=== PATIENT | male | born 1935 | race Caucasian/White ===

== ENCOUNTER 2016-06-02 15:12 | Outpatient (CLI) | payer MEDICARE, OTHER | END 2016-06-02 15:13 | disposition home or self-care (01) | DX: E11.9 Type 2 diabetes mellitus without complications (principal); I10 Essential (primary) hypertension ==

== ENCOUNTER 2016-07-24 08:06 | Outpatient (CLI) | payer MEDICARE, OTHER | END 2016-07-24 08:07 | disposition home or self-care (01) | DX: E11.9 Type 2 diabetes mellitus without complications (principal); I10 Essential (primary) hypertension; E78.5 Hyperlipidemia, unspecified ==

== ENCOUNTER 2016-10-29 08:57 | Outpatient (CLI) | payer MEDICARE, OTHER | END 2016-10-29 08:58 | disposition home or self-care (01) | LOC: SC 08:57 | PROVIDERS: ATTEND Nurse Practitioner Family | DX: G47.33 Obstructive sleep apnea (adult) (pediatric) (principal) | CPT/HCPCS: 99214; G0463; 99212 ==

== ENCOUNTER 2017-08-12 07:12 | Outpatient (CLI) | payer MEDICARE, OTHER ==
[2017-08-12 13:35] LABS: ALBUMIN/GLOBULIN RATIO 1.5 (1.0-2.2); ALKALINE PHOSPHATASE 73 IU/L (42-121); ALT ALANINE AMINOTRANSFERASE 22 IU/L (10-60); AST ASPARTATE AMINOTRANSFERASE 22 IU/L (10-42); BILIRUBIN,TOTAL 1.1 mg/dL (0.2-1.0); BUN - BLOOD UREA NITROGEN 21 mg/dL (6-20); CALCIUM 8.9 mg/dL (8.5-10.3); CARBON DIOXIDE - CO2 29 mmol/L (21-32); CHLORIDE 103 mmol/L (101-111); CHOL/HDL RATIO 3.9 (<5.0); CHOLESTEROL 174 mg/dL; CREATININE 0.8 mg/dL (0.6-1.2); GFR - MDRD 93 (>89); GLUCOSE 123 mg/dL (70-100); HDL CHOLESTEROL 45 mg/dL; LDL CHOLESTEROL,CALCULATED 120 mg/dL; LDL/HDL RATIO 2.7 (<3.6); SODIUM 137 mmol/L (135-145); TOTAL PROTEIN 6.6 g/dL (6.7-8.2); VLDL CHOLESTEROL 9 mg/dL
[2017-08-12 13:36] LABS: HB2 TOTAL 15.6 g/dL; HEMOGLOBIN A1C 0.68 g/dL; HEMOGLOBIN A1C % 6.1 % (4.6-6.2)
== END 2017-08-12 07:13 | disposition home or self-care (01) ==
LOC: LAB.WCP 07:12
PROVIDERS: ATTEND Family Medicine
DX: E11.9 Type 2 diabetes mellitus without complications (principal); I10 Essential (primary) hypertension; E78.5 Hyperlipidemia, unspecified
CPT/HCPCS: 36415; 80053; 80061; 82043; 83036; 83721; 84443

== ENCOUNTER 2017-09-09 09:17 | Outpatient (CLI) | payer MEDICARE, OTHER | END 2017-09-09 09:18 | disposition home or self-care (01) | LOC: SC 09:17 | PROVIDERS: ATTEND Nurse Practitioner Family | DX: G47.33 Obstructive sleep apnea (adult) (pediatric) (principal); I10 Essential (primary) hypertension | CPT/HCPCS: 99214; G0463; 99212 ==

== ENCOUNTER 2018-02-23 07:07 | Outpatient (CLI) | payer MEDICARE, OTHER ==
[2018-02-23 13:08] LABS: HB2 TOTAL 15.6 g/dL; HEMOGLOBIN A1C 0.71 g/dL; HEMOGLOBIN A1C % 6.3 % (4.6-6.2)
[2018-02-23 13:12] LABS: ALBUMIN 4.3 g/dL (3.2-5.5); ALBUMIN/GLOBULIN RATIO 1.6 (1.0-2.2); BILIRUBIN,TOTAL 1.7 mg/dL (0.2-1.0); CALCIUM 9.2 mg/dL (8.5-10.3); CREATININE 0.9 mg/dL (0.6-1.2)
== END 2018-02-23 23:59 | disposition home or self-care (01) ==
LOC: LAB.WCP 07:07
PROVIDERS: ATTEND Family Medicine
DX: E11.9 Type 2 diabetes mellitus without complications (principal); E78.5 Hyperlipidemia, unspecified; I10 Essential (primary) hypertension
CPT/HCPCS: 36415; 80053; 83036

== ENCOUNTER 2018-05-20 07:21 | Outpatient (CLI) | payer MEDICARE, OTHER ==
[2018-05-20 13:35] LABS: BASOPHILS % (AUTO) 0.6 %; EOSINOPHILS # (AUTO) 0.1 10^3/uL (0.0-0.7); EOSINOPHILS % (AUTO) 1.8 %; HGB - HEMOGLOBIN 14.2 g/dL (14.0-18.0); LYMPHOCYTES # (AUTO) 0.8 10^3/uL (1.5-3.5); LYMPHOCYTES % (AUTO) 20.2 %; MEAN CORPUSCULAR HEMOGLOBIN 31.4 pg (27.0-31.0); MEAN CORPUSCULAR HGB CONC 33.9 g/dL (32.0-36.0); MEAN CORPUSCULAR VOLUME 92.5 fL (80.0-94.0); MEAN PLATELET VOLUME 8.5 fL (7.4-11.4); MONOCYTES # (AUTO) 0.4 10^3/uL (0.0-1.0); MONOCYTES % (AUTO) 9.6 %; NEUTROPHILS # (AUTO) 2.7 10^3/uL (1.5-6.6); NEUTROPHILS % (AUTO) 67.8 %; PLT - PLATELET COUNT 119 10^3/uL (130-450); RED BLOOD COUNT 4.54 10^6/uL (4.70-6.10); RED CELL DISTRIBUTION WIDTH 14.5 % (12.0-15.0); WHITE BLOOD COUNT 3.9 x10^3/uL (4.8-10.8)
[2018-05-20 14:08] LABS: ALBUMIN 4.3 g/dL (3.2-5.5); ALBUMIN/GLOBULIN RATIO 1.5 (1.0-2.2); ALKALINE PHOSPHATASE 84 IU/L (42-121); ALT ALANINE AMINOTRANSFERASE 32 IU/L (10-60); AST ASPARTATE AMINOTRANSFERASE 28 IU/L (10-42); BILIRUBIN,TOTAL 1.6 mg/dL (0.2-1.0); BUN - BLOOD UREA NITROGEN 21 mg/dL (6-20); CALCIUM 9.3 mg/dL (8.5-10.3); CARBON DIOXIDE - CO2 31 mmol/L (21-32); CHLORIDE 104 mmol/L (101-111); CHOL/HDL RATIO 2.5 (<5.0); CHOLESTEROL 123 mg/dL; CREATININE 0.9 mg/dL (0.6-1.2); GFR - MDRD 81 (>89); GLUCOSE 120 mg/dL (70-100); HDL CHOLESTEROL 50 mg/dL; LDL CHOLESTEROL,CALCULATED 65 mg/dL; LDL/HDL RATIO 1.3 (<3.6); SODIUM 142 mmol/L (135-145); TOTAL PROTEIN 7.1 g/dL (6.7-8.2); VLDL CHOLESTEROL 8 mg/dL
[2018-05-20 14:14] LABS: HB2 TOTAL 15.3 g/dL; HEMOGLOBIN A1C 0.64 g/dL
== END 2018-05-20 07:22 | disposition home or self-care (01) ==
LOC: LAB.WCP 07:21
PROVIDERS: ATTEND Family Medicine
DX: I10 Essential (primary) hypertension (principal); E11.9 Type 2 diabetes mellitus without complications; C09.1 Malignant neoplasm of tonsillar pillar (anterior) (posterior); D35.2 Benign neoplasm of pituitary gland
CPT/HCPCS: 36415; 80053; 80061; 83036; 83721; 84443; 85025

== ENCOUNTER 2018-10-19 09:58 | Outpatient (CLI) | payer MEDICARE, OTHER | END 2018-10-19 09:59 | disposition home or self-care (01) | LOC: SC 09:58 | PROVIDERS: ATTEND Nurse Practitioner Family | DX: G47.33 Obstructive sleep apnea (adult) (pediatric) (principal) | CPT/HCPCS: 99214; G0463; 99212 ==

== ENCOUNTER 2018-11-11 | Outpatient (CLI) | payer MEDICARE, OTHER | END 2018-11-11 23:59 | disposition home or self-care (01) ==

== ENCOUNTER 2018-12-21 11:25 | Day surgery (SDC) | payer MEDICARE, OTHER ==
[2018-12-21] MEDS ORDERED: fentaNYL 250 MCG/5 ML VIAL IVP ONE (11:26)
[2018-12-21] MEDS ORDERED: MIDAZOLAM 2 MG/2 ML VIAL IVP ONE (11:26)
[2018-12-21] MEDS ORDERED: LACTATED RINGERS 1,000 ML IV ONE (11:35)
[2018-12-21 14:11] VITALS: BP 149/80
== END 2018-12-21 11:26 | disposition home or self-care (01) ==
LOC: SDS 11:25
PROVIDERS: ATTEND Surgery
PROC: 0DBL8ZZ Excision of Transverse Colon, Via Natural or Artificial Opening Endoscopic (ICD-10-PCS; 2018-12-21)
PROC: 0DBN8ZZ Excision of Sigmoid Colon, Via Natural or Artificial Opening Endoscopic (ICD-10-PCS; principal; 2018-12-21 13:00)
DX: Z12.11 Encounter for screening for malignant neoplasm of colon (principal); D12.3 Benign neoplasm of transverse colon; K63.5 Polyp of colon; I10 Essential (primary) hypertension; E11.9 Type 2 diabetes mellitus without complications; E78.00 Pure hypercholesterolemia, unspecified; G47.33 Obstructive sleep apnea (adult) (pediatric)
CPT/HCPCS: 45380; J3010; J7120

== ENCOUNTER 2019-03-02 07:00 | Outpatient (CLI) | payer MEDICARE, OTHER ==
[2019-03-02 13:17] LABS: ALBUMIN 4.1 g/dL (3.2-5.5); ALBUMIN/GLOBULIN RATIO 1.2 (1.0-2.2); CALCIUM 9.5 mg/dL (8.5-10.3); CREATININE 0.9 mg/dL (0.6-1.2); TOTAL PROTEIN 7.4 g/dL (6.7-8.2)
[2019-03-02 13:29] LABS: THYROID STIMULATING HORMONE 1.99 uIU/mL (0.34-5.60)
[2019-03-02 13:31] LABS: FREE T4 (FREE THYROXINE) 0.96 ng/dL (0.58-1.64)
[2019-03-02 13:32] LABS: HEMOGLOBIN A1C 0.71 g/dL; HEMOGLOBIN A1C % 6.5 % (4.6-6.2)
[2019-03-02 13:58] LABS: LUTEINIZING HORMONE 4.13 mIU/mL
== END 2019-03-02 23:59 | disposition home or self-care (01) ==
LOC: LAB.WCP 07:00
PROVIDERS: ATTEND Family Medicine
DX: D35.2 Benign neoplasm of pituitary gland (principal); E11.9 Type 2 diabetes mellitus without complications
CPT/HCPCS: 36415; 80053; 81599; 83002; 83036; 84305; 84402; 84403; 84439; 84443

== ENCOUNTER 2019-05-26 07:10 | Outpatient (CLI) | payer MEDICARE, OTHER ==
[2019-05-26 13:26] LABS: BASOPHILS % (AUTO) 0.5 %; EOSINOPHILS # (AUTO) 0.1 10^3/uL (0.0-0.7); EOSINOPHILS % (AUTO) 1.6 %; HGB - HEMOGLOBIN 14.3 g/dL (14.0-18.0); LYMPHOCYTES # (AUTO) 0.9 10^3/uL (1.5-3.5); LYMPHOCYTES % (AUTO) 23.8 %; MEAN CORPUSCULAR HEMOGLOBIN 31.6 pg (27.0-31.0); MEAN CORPUSCULAR HGB CONC 33.2 g/dL (32.0-36.0); MEAN CORPUSCULAR VOLUME 95.1 fL (80.0-94.0); MEAN PLATELET VOLUME 10.8 fL (7.4-11.4); MONOCYTES # (AUTO) 0.4 10^3/uL (0.0-1.0); MONOCYTES % (AUTO) 9.6 %; NEUTROPHILS # (AUTO) 2.5 10^3/uL (1.5-6.6); NEUTROPHILS % (AUTO) 64.2 %; PLT - PLATELET COUNT 131 10^3/uL (130-450); RED BLOOD COUNT 4.53 10^6/uL (4.70-6.10); WHITE BLOOD COUNT 3.9 x10^3/uL (4.8-10.8)
[2019-05-26 13:54] LABS: CREATININE,URINE 84.3 mg/dL
[2019-05-26 13:58] LABS: MICROALBUMIN,URINE < 0.2 mg/dL (0-300.0)
[2019-05-26 13:59] LABS: HB2 TOTAL 14.5 g/dL; HEMOGLOBIN A1C 0.69 g/dL; HEMOGLOBIN A1C % 6.5 % (4.6-6.2)
[2019-05-26 14:00] LABS: ALBUMIN 4.2 g/dL (3.2-5.5); ALBUMIN/GLOBULIN RATIO 1.6 (1.0-2.2); ALKALINE PHOSPHATASE 56 IU/L (42-121); ALT ALANINE AMINOTRANSFERASE 24 IU/L (10-60); AST ASPARTATE AMINOTRANSFERASE 25 IU/L (10-42); BILIRUBIN,TOTAL 1.4 mg/dL (0.2-1.0); BUN - BLOOD UREA NITROGEN 28 mg/dL (6-20); CALCIUM 9.1 mg/dL (8.5-10.3); CARBON DIOXIDE - CO2 29 mmol/L (21-32); CHLORIDE 102 mmol/L (101-111); CHOL/HDL RATIO 2.6 (<5.0); CHOLESTEROL 128 mg/dL; GFR - MDRD 72 (>89); GLUCOSE 134 mg/dL (70-100); HDL CHOLESTEROL 50 mg/dL; SODIUM 139 mmol/L (135-145); TOTAL PROTEIN 6.9 g/dL (6.7-8.2)
== END 2019-05-26 23:59 | disposition home or self-care (01) ==
LOC: LAB.WCP 07:10
PROVIDERS: ATTEND Family Medicine
DX: D35.2 Benign neoplasm of pituitary gland (principal); E78.5 Hyperlipidemia, unspecified; E11.620 Type 2 diabetes mellitus with diabetic dermatitis; I10 Essential (primary) hypertension
CPT/HCPCS: 36415; 80053; 80061; 82043; 82570; 83036; 83721; 84443; 85025

== ENCOUNTER 2019-08-23 10:21 | Outpatient (CLI) | payer MEDICARE, OTHER ==
[2019-08-23 12:59] LABS: CREATININE,URINE 33.9 mg/dL; MICROALBUM/CREATININE RATIO,UR 5.9 ug/mg (<30.0); MICROALBUMIN,URINE 0.2 mg/dL (0-300.0)
[2019-08-23 13:12] LABS: CALCIUM 9.2 mg/dL (8.5-10.3); CREATININE 0.9 mg/dL (0.6-1.2)
[2019-08-23 13:19] LABS: HB2 TOTAL 14.9 g/dL; HEMOGLOBIN A1C 0.65 g/dL; HEMOGLOBIN A1C % 6.1 % (4.6-6.2)
== END 2019-08-23 23:59 | disposition home or self-care (01) ==
LOC: LAB.WCP 10:21
PROVIDERS: ATTEND Family Medicine
DX: E11.9 Type 2 diabetes mellitus without complications (principal)
CPT/HCPCS: 36415; 80048; 82043; 82570; 83036

== ENCOUNTER 2020-01-09 08:00 | Outpatient (CLI) | payer MEDICARE, OTHER ==
[2020-01-09 13:44] LABS: ALBUMIN 4.4 g/dL (3.2-5.5); ALBUMIN/GLOBULIN RATIO 1.5 (1.0-2.2); BILIRUBIN,TOTAL 1.6 mg/dL (0.2-1.0); CALCIUM 9.4 mg/dL (8.5-10.3); TOTAL PROTEIN 7.3 g/dL (6.7-8.2)
[2020-01-09 13:45] LABS: HEMOGLOBIN A1c% 6.4 % (4.27-6.07)
== END 2020-01-09 23:59 | disposition home or self-care (01) ==
LOC: LAB.WCP 08:00
PROVIDERS: ATTEND Family Medicine
DX: E78.5 Hyperlipidemia, unspecified (principal); I10 Essential (primary) hypertension; E11.9 Type 2 diabetes mellitus without complications
CPT/HCPCS: 36415; 80053; 82043; 82570; 83036

== ENCOUNTER → 2020-04-19 | Outpatient (CLI) | payer MEDICARE, OTHER ==
--- NOTE | 2020-04-19 11:44 | XRAY Report ---
PROCEDURE: Shoulder 3 View LT INDICATIONS: LEFT SHOULDER IMPINGEMENT SYNDROME TECHNIQUE: 3 views of the shoulder were acquired. COMPARISON: None. FINDINGS: Bones: No fractures or dislocations. No suspicious bony lesions. Visualized ribs appear intact. Soft tissues: No suspicious soft tissue calcifications. IMPRESSION: Moderately severe AC joint and moderate glenohumeral joint degenerative osteoarthritis, no trauma found. Reviewed by: Adolph Coronel MD on 04/19/2020 11:43 AM [facility] Approved by: Adolph Coronel MD on 04/19/2020 11:43 AM PST Station ID: [id number]
--- OUTSIDE RECORDS SUMMARY | 2020-04-24 09:59 | EXTERNAL MEDICAL SUMMARY RPT | Continuity of Care Document ---
:1935 Demographics Phone Unavailable Preferred Language South [place] Marital Status Unknown Caodaism Affiliation Unknown Race Unknown Ethnic Group Unknown Author Organization [facility] Address [address] [phone] Phone Care Team Providers Name Role Phone HERACLIO Unavailable Unavailable [facility]ly [facility], [facility] Unavailable Unavailable Problems date description facility 2020-01-30 09:15 STRAIN OF MUSC/FASC/TEND LONG [facility] HEAD OF BICEPS, UNSP ARM, INIT 2020-02-08 14:30 STRAIN OF MUSC/FASC/TEND LONG [facility] HEAD OF BICEPS, UNSP ARM, INIT 2020-02-08 14:30 STRAIN OF MUSC/FASC/TEND LONG [facility] HEAD OF BICEPS, UNSP ARM, SUBS 2020-04-18 00:00:00 Other affections of shoulder [facility], not elsewhere [facility] classified 2020-04-18 00:00:00 SHOULDER COMPLETE 3 VIEW [facility] 2020-04-18 00:00:00 Impingement syndrome of left [place] [facility] shoulder [facility] 2020-04-18 00:00:00 Health-related behavior [facility] 2020-04-18 00:00:00 Tobacco use and exposure [facility] 2020-04-18 00:00:00 Impingement syndrome of [facility] shoulder region [facility] 2020-04-18 00:00:00 Exercise [facility] 2020-04-18 00:00:00 Details of drug misuse [facility] Primary [facility] behavior [facility] 2020-04-18 00:00:00 [facility] 2020-04-18 00:00:00 Tobacco smoking status [facility] 2020-04-18 00:00:00 Total score? [facility] 2020-04-18 00:00:00 Former smoker [facility] Allergies date description facility NO KNOWN ENVIRONMENTAL ALLERGIES [facility] Penicillins [facility] AMOXICILLIN [facility] NO KNOWN ALLERGIES [facility] MORPHINE [facility] Social History date description facility 2020-04-18 00:00:00 Former smoker [facility] Social History date description facility 2020-04-18 00:00:00 Former smoker [facility] date description facility [id number]
== END ==
LOC: DI.WCP 08:27
PROVIDERS: ATTEND Physician Assistant Medical
DX: M75.42 Impingement syndrome of left shoulder (principal); M19.012 Primary osteoarthritis, left shoulder

== ENCOUNTER 2020-07-05 09:42 | Outpatient (CLI) | payer MEDICARE, OTHER ==
[2020-07-05 12:28] LABS: BASOPHILS % (AUTO) 0.5 %; EOSINOPHILS # (AUTO) 0.1 10^3/uL (0.0-0.7); EOSINOPHILS % (AUTO) 0.9 %; HCT - HEMATOCRIT 45.9 % (42.0-52.0); LYMPHOCYTES % (AUTO) 17.6 %; MEAN CORPUSCULAR HEMOGLOBIN 30.7 pg (27.0-31.0); MEAN CORPUSCULAR HGB CONC 32.7 g/dL (32.0-36.0); MEAN CORPUSCULAR VOLUME 94.1 fL (80.0-94.0); MEAN PLATELET VOLUME 10.2 fL (7.4-11.4); MONOCYTES # (AUTO) 0.5 10^3/uL (0.0-1.0); MONOCYTES % (AUTO) 8.3 %; NEUTROPHILS % (AUTO) 72.3 %; PLT - PLATELET COUNT 156 10^3/uL (130-450); RED BLOOD COUNT 4.88 10^6/uL (4.70-6.10); RED CELL DISTRIBUTION WIDTH 13.4 % (12.0-15.0); WHITE BLOOD COUNT 5.6 x10^3/uL (4.8-10.8)
[2020-07-05 12:48] LABS: ALBUMIN 4.5 g/dL (3.2-5.5); ALBUMIN/GLOBULIN RATIO 1.5 (1.0-2.2); ALKALINE PHOSPHATASE 66 IU/L (42-121); ALT ALANINE AMINOTRANSFERASE 23 IU/L (10-60); AST ASPARTATE AMINOTRANSFERASE 28 IU/L (10-42); BILIRUBIN,TOTAL 1.4 mg/dL (0.2-1.0); BUN - BLOOD UREA NITROGEN 17 mg/dL (6-20); CALCIUM 9.4 mg/dL (8.5-10.3); CARBON DIOXIDE - CO2 31 mmol/L (21-32); CHLORIDE 98 mmol/L (101-111); CHOL/HDL RATIO 2.7 (<5.0); CHOLESTEROL 145 mg/dL; GFR - MDRD 71 (>89); GLUCOSE 132 mg/dL (70-100); HDL CHOLESTEROL 53 mg/dL; LDL CHOLESTEROL,CALCULATED 84 mg/dL; LDL/HDL RATIO 1.6 (<3.6); POTASSIUM 3.5 mmol/L (3.5-5.0); SODIUM 137 mmol/L (135-145); TOTAL PROTEIN 7.5 g/dL (6.7-8.2); TRIGLYCERIDES 41 mg/dL; VLDL CHOLESTEROL 8 mg/dL
[2020-07-05 12:49] LABS: ESTIMATED AVERAGE GLUCOSE 140 mg/dL (70-100); HEMOGLOBIN A1c% 6.5 % (4.27-6.07)
[2020-07-05 12:56] LABS: THYROID STIMULATING HORMONE 1.81 uIU/mL (0.34-5.60)
[2020-07-05 18:23] LABS: CREATININE,URINE 25.3 mg/dL; MICROALBUM/CREATININE RATIO,UR 7.9 ug/mg (<30.0); MICROALBUMIN,URINE 0.2 mg/dL (0-300.0)
== END 2020-07-05 09:43 | disposition home or self-care (01) ==
LOC: LAB.N 09:42
PROVIDERS: ATTEND Physician Assistant Medical
DX: I10 Essential (primary) hypertension (principal); E78.5 Hyperlipidemia, unspecified; E11.9 Type 2 diabetes mellitus without complications
CPT/HCPCS: 36415; 80053; 80061; 82043; 82570; 83036; 83721; 84443; 85025

== ENCOUNTER 2020-11-12 08:00 | Outpatient (CLI) | payer MEDICARE, OTHER ==
[2020-11-12 13:20] LABS: CALCIUM 9.5 mg/dL (8.5-10.3); CREATININE 0.8 mg/dL (0.6-1.2); POTASSIUM 3.8 mmol/L (3.5-5.0)
[2020-11-12 13:43] LABS: ESTIMATED AVERAGE GLUCOSE 140 mg/dL (70-100); HEMOGLOBIN A1c% 6.5 % (4.27-6.07)
== END 2020-11-12 23:59 | disposition home or self-care (01) ==
LOC: LAB.WCP 08:00
PROVIDERS: ATTEND Physician Assistant Medical
DX: E11.9 Type 2 diabetes mellitus without complications (principal)
CPT/HCPCS: 36415; 80048; 83036

== ENCOUNTER 2020-11-23 10:47 | Outpatient (CLI) | payer MEDICARE, OTHER ==
[2020-11-23] MEDS ORDERED: IOPAMIDOL-300 100 ML VIAL IVP ONE (11:40)
--- NOTE | 2020-11-23 12:45 | CT Report ---
PROCEDURE: SOFT TISSUE NECK W INDICATIONS: 85-year-old male with sore throat, left-sided lump, history of left tonsillar carcinoma CONTRAST: IV CONTRAST: Isovue 300 ml: 100 PO CONTRAST: *NO PO CONTRAST TECHNIQUE: After the administration of intravenous contrast, 3.0 mm axial sections acquired from the sella to th e aortic arch. Additional oblique axial 3.0 mm sections acquired through the pharynx. 3 mm thick co wei reformats were generated. For radiation dose reduction, the following was used: automated exp osure control, adjustment of mA and/or kV according to patient size. COMPARISON: 01/17/2016 FINDINGS: Image quality: Excellent. Vessels: Visualized vasculature appears patent. Vascular calcification the right proximal ICA results in greater than 70% stenosis, similar the prior . Neck spaces: There remains soft tissue fullness in the left tonsillar fossa measuring at least 1.8 x 1.4 cm. Additionally, there is a new mass lesion measuring 2.8 x 2.5 x 2.5 cm in the posterior left lateral nasopharynx obliterating the fossa of Rosenmuller and involving the longus coli muscle. This may reflect a new lateral retropharyngeal layne involvement (node of Rouviere). No osseous erosion. There is been a left neck dissection. Otherwise, the vocal cords, false vocal cords, pyriform sinuses , epiglottis, vallecula, and tongue base all appear normal. Glands: The parotid glands appear normal. The thyroid is normal in size and there are no incidental findings. Miscellaneous: Visualized brain and orbits appear normal. Lung apices appear clear. Superficial so ft tissues appear normal. Bilateral intraocular lens replacements noted. Bones: No suspicious bony lesions. Visualized sinuses and mastoids appear unremarkable. Degenerati ve cervical spine noted with large posterior osteophyte at C6-7 resulting in severe central stenosis, similar prior exam IMPRESSION: 1. 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 Fullness in the left tonsillar fossa may reflect scarring or recurrent local disease. 3. 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 Atherosclerotic right proximal ICA greater than 70% stenosis Reviewed by: Reynold Elizabeth MD on 11/23/2020 11:43 AM [facility] Approved by: Reynold Elizabeth MD on 11/23/2020 11:43 AM [facility] Station ID: [id number]
== END 2020-11-23 10:48 | disposition home or self-care (01) ==
LOC: DI 10:47
PROVIDERS: ATTEND Physician Assistant Medical
DX: C09.1 Malignant neoplasm of tonsillar pillar (anterior) (posterior) (principal); I65.21 Occlusion and stenosis of right carotid artery; M50.323 Other cervical disc degeneration at C6-C7 level; M48.02 Spinal stenosis, cervical region
CPT/HCPCS: 70491; Q9967

== ENCOUNTER 2021-02-11 08:00 | Outpatient (CLI) | payer MEDICARE, OTHER ==
[2021-02-11 12:16] LABS: ALBUMIN 4.1 g/dL (3.2-5.5); ALBUMIN/GLOBULIN RATIO 1.3 (1.0-2.2); ALKALINE PHOSPHATASE 72 IU/L (42-121); ALT ALANINE AMINOTRANSFERASE 23 IU/L (10-60); AST ASPARTATE AMINOTRANSFERASE 23 IU/L (10-42); BILIRUBIN,TOTAL 1.5 mg/dL (0.2-1.0); BUN - BLOOD UREA NITROGEN 18 mg/dL (6-20); CALCIUM 9.6 mg/dL (8.5-10.3); CARBON DIOXIDE - CO2 33 mmol/L (21-32); CHLORIDE 100 mmol/L (101-111); CHOL/HDL RATIO 2.7 (<5.0); CHOLESTEROL 130 mg/dL; CREATININE 0.9 mg/dL (0.6-1.2); GFR - MDRD 80 (>89); GLUCOSE 135 mg/dL (70-100); HDL CHOLESTEROL 48 mg/dL; POTASSIUM 3.7 mmol/L (3.5-5.0); SODIUM 141 mmol/L (135-145); TOTAL PROTEIN 7.2 g/dL (6.7-8.2); TRIGLYCERIDES 32 mg/dL
[2021-02-11 13:12] LABS: ESTIMATED AVERAGE GLUCOSE 146 mg/dL (70-100); HEMOGLOBIN A1c% 6.7 % (4.27-6.07)
== END 2021-02-11 23:59 | disposition home or self-care (01) ==
LOC: LAB.WCP 08:00
PROVIDERS: ATTEND Physician Assistant Medical
DX: E11.9 Type 2 diabetes mellitus without complications (principal)
CPT/HCPCS: 36415; 80053; 80061; 83036; 83721

== ENCOUNTER 2021-05-09 08:00 | Outpatient (CLI) | payer MEDICARE, OTHER ==
[2021-05-09 12:59] LABS: CALCIUM 9.6 mg/dL (8.5-10.3); CREATININE 0.9 mg/dL (0.6-1.2); POTASSIUM 3.8 mmol/L (3.5-5.0)
[2021-05-09 14:43] LABS: ESTIMATED AVERAGE GLUCOSE 148 mg/dL (70-100); HEMOGLOBIN A1c% 6.8 % (4.27-6.07)
== END 2021-05-09 23:59 | disposition home or self-care (01) ==
LOC: LAB.WCP 08:00
PROVIDERS: ATTEND Physician Assistant Medical
DX: E11.9 Type 2 diabetes mellitus without complications (principal)
CPT/HCPCS: 36415; 80048; 83036

== ENCOUNTER 2021-06-17 13:48 | Outpatient (CLI) | payer MEDICARE, OTHER ==
--- NOTE | 2021-06-17 14:35 | SLEEP CARE CONSULTATION ---
Information from patient questionnaire entered by Keila Up MA. I have reviewed and concur with the information entered by Keila Up MA. This document represents the service I personally performed and the decisions made by , Susan Gray ARNP. History of Present Illness Service Date and Time: 06/17/2021 1348 Previous diagnosis: Moderate, Obstructive Sleep Apnea-Hypopnea Syndrome (Severe supine) AHI: 19.9 ( ) Reason for follow up: annual (LAST SEEN 10/2018,) Equipment type: CPAP Equipment obtained from: [facility] (getting supplies as needed) Mask style: Full face Backup mask available: Yes (old mask) Last cushion change: 1-2 weeks ago Prior sleep studies: Yes Year and Where: 2011 [facility] Type of Sleep Study: Polysomnography HPI additional information: AMBER PANTOJA was diagnosed to have moderate, AHI 19.9, obstructive sleep apnea- hypopnea syndrome and returned today for CPAP therapy annual follow-up. CPAP Compliance Data - Data Reviewed with Patient Average duration of nightly device use: 6 HOURS 17 MINUTES Compliance rate %: 87.5 Current pressure setting (cmH2O): 16-18 Humidity settin Heated hose settin Average residual AHI: 2.1 Average large leak: 46 SECONDS Subjective Missed days of use due to: reports: mask issues, illness, other (VELCRO ON MASK IS COMMING APART,) Patient concerns: reports: mask leak noise, dry mouth, nose, throat. denies: aerophagia, mask discomfort, air blowing in eyes, condensation in mask/hose, nasal congestion, epistaxis Observed to snore while using device: No Current pressure setting perceived as: comfortable On therapy, patient: reports: sleeping better, awakening more refreshed, being more awake and alert during the day, more rested overall. denies: drowsiness while driving Current [place] Sleepiness Scale score: 6 (2021) Allergies and Home Medications Home medication list reviewed: Yes (Keytruda; triamcinolone cream) Allergy and home medication list: Allergies Penicillins Allergy (Intermediate, Verified 12/20/18 13:45) Hives Review of Systems Review of systems same as previous: No (Throat cancer reoccured 6 months ago) Ear/Nose/Throat: reports: dry mouth/throat, other (THROAT CANCER) Physical Exam Vital signs obtained and entered by: RAY CEBALLOS Blood Pressure: 126/74 (RIGHT, PULSE 78, RESP 16,) Cuff size: wrist Heart Rate: 79 O2 Saturation: 97 (PAPER MASK) Height: 5 ft 10 in Weight: 162 lb Body Mass Index: 23.2 BMI Classification: Healthy weight Impression and Plan 1. Obstructive Sleep Apnea-Hypopnea Syndrome, moderate, with good treatment compliance and good apnea control. On CPAP therapy, the patient has better sleep quality and is more rested overall. Patient has a Dreamstation. He states occasionally he will get a "burning smell" from his mask but it is very transitory. He cannot go without his device and continues to use it. He states that 6 months ago his throat cancer came back and he is on Keytruda for this. Patient was encouraged to register their device online with [employer] for the recall to see if their device is affected. If their device is affected they should start a claim. I informed him that he could obtain a portable CPAP machine to use until his machine is replaced. He voiced understanding. Patient voiced understanding and agreement with plan. Patient's apnea severity and rationale for treatment to reduce apnea, improve sleep quality and reduce cardiovascular and cerebrovascular events was reviewed. I also reviewed the benefit of consistent device use of CPAP for hypertension. He was encouraged to try to maintain a healthy weight. * Continue auto CPAP pressure at 16-18 cmH2O * Notify me if snoring with mask or feeling that the pressure is too much or too little * Attempt to lose weight * Call this office if any problems using CPAP * Return for follow up in 1 year, or sooner if concerns arise Counseling Topics: Spare mask, Weight loss health impact Visit Type: In Office Time Spent with Patient (minutes): 28 Provider Statement: I spent 100% of the Face to Face Visit with the patient with greater than 50% spent counseling the patient and coordination of care.
[2021-06-17 14:36] VITALS: BP 126/74
== END 2021-06-17 13:49 | disposition home or self-care (01) ==
LOC: SC 13:48
PROVIDERS: ATTEND Nurse Practitioner Family
DX: G47.33 Obstructive sleep apnea (adult) (pediatric) (principal)
CPT/HCPCS: 99213; G0463; 99212

== ENCOUNTER 2022-05-22 07:28 | Outpatient (CLI) | payer MEDICARE, OTHER ==
[2022-05-22 13:20] LABS: ESTIMATED AVERAGE GLUCOSE 160 mg/dL (70-100); HEMOGLOBIN A1c% 7.2 % (4.27-6.07)
[2022-05-22 13:37] LABS: CHOL/HDL RATIO 2.7 (<5.0); CHOLESTEROL 131 mg/dL; HDL CHOLESTEROL 48 mg/dL; LDL CHOLESTEROL,CALCULATED 75 mg/dL; LDL/HDL RATIO 1.6 (<3.6); TRIGLYCERIDES 41 mg/dL; VLDL CHOLESTEROL 8 mg/dL
== END 2022-05-22 07:29 | disposition home or self-care (01) ==
LOC: LAB.N 07:28
PROVIDERS: ATTEND Physician Assistant Medical
DX: E11.9 Type 2 diabetes mellitus without complications (principal)
CPT/HCPCS: 36415; 80061; 83036; 83721

== ENCOUNTER 2022-09-01 07:57 | Outpatient (CLI) | payer MEDICARE, OTHER ==
[2022-09-01 11:58] LABS: CALCIUM 9.4 mg/dL (8.5-10.3); CREATININE 0.7 mg/dL (0.6-1.2); POTASSIUM 3.5 mmol/L (3.5-5.0)
[2022-09-01 12:17] LABS: ESTIMATED AVERAGE GLUCOSE 134 mg/dL (70-100); HEMOGLOBIN A1c% 6.3 % (4.27-6.07)
== END 2022-09-01 07:58 | disposition home or self-care (01) ==
LOC: LAB.N 07:57
PROVIDERS: ATTEND Physician Assistant Medical
DX: E11.9 Type 2 diabetes mellitus without complications (principal)
CPT/HCPCS: 36415; 80048; 83036

== ENCOUNTER 2022-12-17 11:01 | Outpatient (CLI) | payer MEDICARE, OTHER ==
--- NOTE | 2022-12-17 11:28 | Sleep Patient Instructions ---
Sleep Center Visit Summary - Patient Visit Information Reason for Visit: ANNUAL VISIT FOR PAP THERAPY - Patient Instructions Additional Instructions: You will continue with CPAP therapy with pressure set at 16-18 cmH2O. A supply prescription will be updated with your DME. Please follow up with the sleep care office in 1 year. - Clinic Information Contact: [facility] [address] [place] [id number] [email or web address] T: [phone]
--- NOTE | 2022-12-17 11:32 | SLEEP CARE CONSULTATION ---
Information from patient questionnaire entered by Blanca Membreno. I have reviewed and concur with the information entered by Blanca Membreno. This document represents the service I personally performed and the decisions made by me, Susan Gray ARNP. History of Present Illness Service Date and Time: 12/17/2022 1101 Previous diagnosis: Moderate, Obstructive Sleep Apnea-Hypopnea Syndrome (Severe supine) AHI: 19.9 (in 2011) Reason for follow up: annual (LAST SEEN 06/2021) Equipment type: CPAP ([employer] Dreamstation 2; s/u 09/22/2017) Equipment obtained from: [employer] (getting supplies as needed, needs new script) Mask style: Full face Mask brand: Resmed (AirFit F20) Backup mask available: Yes (other mask) Last cushion change: 6 weeks Prior sleep studies: Yes Year and Where: 2011 [facility] Type of Sleep Study: Polysomnography HPI additional information: AMBER PANTOJA was diagnosed to have moderate, AHI 19.9, obstructive sleep apnea- hypopnea syndrome and returned today for CPAP therapy annual follow-up. Sleep Study - Results Type of Sleep Study: Polysomnography Prior sleep studies: Yes Year and Where: 2011 [facility] CPAP Compliance Data - Data Reviewed with Patient Average duration of nightly device use: 6 HRS 32 MINS 16 SECS Compliance rate %: 92.2 (06/09/22-12/05/22; 178/180 days used) Current pressure setting (cmH2O): 16-18 Average residual AHI: 0.7 Central apnea: 0.3 Obstructive apnea: 0.2 Average large leak: 0 secs Subjective Missed days of use due to: reports: illness Patient concerns: reports: mask discomfort (needs replacement), mask leak noise, dry mouth, nose, throat (dry mouth and throat). denies: aerophagia, air blowing in eyes, condensation in mask/hose, nasal congestion, epistaxis Observed to snore while using device: No Current pressure setting perceived as: comfortable On therapy, patient: reports: sleeping better, awakening more refreshed, being more awake and alert during the day, more rested overall. denies: drowsiness while driving Initial [place] Sleepiness Scale score: 5 (2013) Current [place] Sleepiness Scale score: 7 (12/17/22) Allergies and Home Medications Known drug allergies: Yes (penicillins) Drug allergies reviewed: Yes Home medication list reviewed: Yes (no changes) Allergy and home medication list: Allergies Penicillins Allergy (Intermediate, Verified 12/16/22 16:35) Hives Review of Systems Review of systems same as previous: No (THROAT CANCER) Physical Exam Vital signs obtained and entered by: NANCY Julian Blood Pressure: 120/62 (LEFT ARM) Cuff size: regular Heart Rate: 64 O2 Saturation: 99 Height: 5 ft 10 in Weight: 157 lb Weight change since last visit: 5 lbs loss Body Mass Index: 22.5 BMI Classification: Normal Impression and Plan 1. Obstructive Sleep Apnea-Hypopnea Syndrome, moderate, with good treatment compliance and good apnea control. On CPAP therapy, the patient has better sleep quality and is more rested overall. Patient has significant improvement of their sleep apnea and is satisfied with current CPAP therapy. Patient states he does get dry mouth and throat and uses his humidifier as recommended. He has issues due to throat cancer and is still having radiation treatments. He has no other complaints or issues. We will follow up with him next year. Patient's apnea severity and rationale for treatment to reduce apnea, improve sleep quality and reduce cardiovascular and cerebrovascular events was reviewed. I also reviewed the benefit of consistent device use of CPAP for hypertension. * Continue auto CPAP pressure at 16-18 cmH2O * Update supplies * Notify me if snoring with mask or feeling that the pressure is too much or too little * Call this office if any problems using CPAP * Return for follow up in 1 year, or sooner if concerns arise Counseling Topics: Spare mask Prescriptions: Device supplies Visit Type: In Office Time Spent with Patient (minutes): 20 Provider Statement: I spent 100% of the Face to Face Visit with the patient with greater than 50% spent counseling the patient and coordination of care.
[2022-12-17 11:39] VITALS: BP 120/62; O2SAT 99
== END 2022-12-17 11:02 | disposition home or self-care (01) ==
LOC: SC 11:01
PROVIDERS: ATTEND Nurse Practitioner Family
DX: G47.33 Obstructive sleep apnea (adult) (pediatric) (principal)
CPT/HCPCS: 99213; G0463; 99212

== ENCOUNTER 2023-03-03 07:14 | Outpatient (CLI) | payer MEDICARE, OTHER ==
[2023-03-03 12:24] LABS: ALBUMIN 3.8 g/dL (3.2-5.5); ALBUMIN/GLOBULIN RATIO 1.4 (1.0-2.2); ALKALINE PHOSPHATASE 70 IU/L (42-121); ALT ALANINE AMINOTRANSFERASE 33 IU/L (10-60); AST ASPARTATE AMINOTRANSFERASE 37 IU/L (10-42); BUN - BLOOD UREA NITROGEN 21 mg/dL (6-20); CALCIUM 9.6 mg/dL (8.5-10.3); CARBON DIOXIDE - CO2 34 mmol/L (21-32); CHLORIDE 97 mmol/L (101-111); CHOL/HDL RATIO 3.2 (<5.0); CHOLESTEROL 110 mg/dL; CREATININE 0.8 mg/dL (0.6-1.3); GFR - MDRD 92 (>89); GLUCOSE 122 mg/dL (74-104); HDL CHOLESTEROL 34 mg/dL; LDL CHOLESTEROL,CALCULATED 65 mg/dL; LDL/HDL RATIO 1.9 (<3.6); POTASSIUM 2.9 mmol/L (3.5-4.5); SODIUM 139 mmol/L (135-145); TOTAL PROTEIN 6.5 g/dL (6.4-8.9); TRIGLYCERIDES 57 mg/dL (48-352); VLDL CHOLESTEROL 11 mg/dL
[2023-03-03 12:49] LABS: ESTIMATED AVERAGE GLUCOSE 131 mg/dL (70-100); HEMOGLOBIN A1c% 6.2 % (4.27-6.07)
== END 2023-03-03 07:15 | disposition home or self-care (01) ==
LOC: LAB.N 07:14
PROVIDERS: ATTEND Physician Assistant Medical
DX: E78.5 Hyperlipidemia, unspecified (principal); E11.9 Type 2 diabetes mellitus without complications; I10 Essential (primary) hypertension
CPT/HCPCS: 36415; 80053; 80061; 83036; 83721

== ENCOUNTER 2023-03-19 14:40 | Outpatient (CLI) | payer MEDICARE, OTHER ==
[2023-03-19 18:44] LABS: CALCIUM 9.7 mg/dL (8.5-10.3); CREATININE 0.8 mg/dL (0.6-1.3); POTASSIUM 3.9 mmol/L (3.5-4.5)
== END 2023-03-19 14:41 | disposition home or self-care (01) ==
LOC: LAB.N 14:40
PROVIDERS: ATTEND Physician Assistant Medical
DX: E87.6 Hypokalemia (principal)
CPT/HCPCS: 36415; 80048

== ENCOUNTER 2023-04-14 15:09 | Outpatient (CLI) | payer MEDICARE, OTHER ==
[2023-04-14 15:34] LABS: BASOPHILS # (AUTO) 0.1 10^3/uL (0.0-0.1); BASOPHILS % (AUTO) 0.5 %; EOSINOPHILS % (AUTO) 0.1 %; HGB - HEMOGLOBIN 12.5 g/dL (14.0-18.0); LYMPHOCYTES # (AUTO) 0.9 10^3/uL (1.5-3.5); LYMPHOCYTES % (AUTO) 8.6 %; MEAN CORPUSCULAR HEMOGLOBIN 28.2 pg (27.0-31.0); MEAN CORPUSCULAR HGB CONC 31.3 g/dL (32.0-36.0); MEAN CORPUSCULAR VOLUME 90.1 fL (80.0-94.0); MEAN PLATELET VOLUME 9.3 fL (7.4-11.4); MONOCYTES # (AUTO) 0.6 10^3/uL (0.0-1.0); MONOCYTES % (AUTO) 5.6 %; NEUTROPHILS # (AUTO) 8.7 10^3/uL (1.5-6.6); NEUTROPHILS % (AUTO) 84.9 %; PLT - PLATELET COUNT 301 10^3/uL (130-450); RED BLOOD COUNT 4.44 10^6/uL (4.70-6.10); RED CELL DISTRIBUTION WIDTH 16.3 % (12.0-15.0); WHITE BLOOD COUNT 10.3 x10^3/uL (4.8-10.8)
[2023-04-14 16:47] LABS: ALBUMIN 2.8 g/dL (3.2-5.5); ALBUMIN/GLOBULIN RATIO 0.7 (1.0-2.2); BILIRUBIN,TOTAL 0.6 mg/dL (0.2-1.0); CREATININE 0.7 mg/dL (0.6-1.3); CRP - C-REACTIVE PROTEIN 3.6 mg/dL (<0.5); POTASSIUM 3.6 mmol/L (3.5-4.5); TOTAL PROTEIN 6.6 g/dL (6.4-8.9)
== END 2023-04-14 15:10 | disposition home or self-care (01) ==
LOC: LAB 15:09
PROVIDERS: ATTEND Physician Assistant Medical
DX: J86.9 Pyothorax without fistula (principal)
CPT/HCPCS: 36415; 80053; 85025; 85651; 86140

== ENCOUNTER 2023-04-14 15:19 | Outpatient (CLI) | payer MEDICARE, OTHER ==
--- NOTE | 2023-04-14 16:28 | XRAY Report ---
PROCEDURE: Chest 4+V INDICATIONS: EMPYEMA TECHNIQUE: 4 views of the chest were acquired. COMPARISON: None. FINDINGS: Surgical changes and devices: Right Port-A-Cath is present with distal tip projecting over the mid th oracic spine on AP view) the right of the spine on right side decubitus. Lungs and pleura: There is blunting of left costophrenic angle as well as basilar opacity. It is rela tively unchanged on decubitus views. Mediastinum: Mediastinal contours are normal. Heart size is normal. Bones and chest wall: No suspicious bony abnormalities. Soft tissues appear unremarkable. IMPRESSION: Small appearance of chronic effusion and/or potential scarring at the left base. Underly ing empyema cannot be discerned on the basis of chest x-ray. This is of concern, CT chest is recommen ded. Reviewed by: Gail Bojorquez MD on 04/14/2023 4:26 PM PST Approved by: Gail Bojorquez MD on 04/14/2023 4:26 PM PST Station ID: [id number]
== END 2023-04-14 15:20 | disposition home or self-care (01) ==
LOC: DI 15:19
PROVIDERS: ATTEND Physician Assistant Medical
DX: J86.9 Pyothorax without fistula (principal); R91.8 Other nonspecific abnormal finding of lung field
CPT/HCPCS: 36415; 80053; 85025; 85651; 86140

== ENCOUNTER 2023-06-01 07:59 | Outpatient (CLI) | payer MEDICARE, OTHER ==
[2023-06-01 08:22] LABS: BUN - BLOOD UREA NITROGEN 16 mg/dL (6-20); CALCIUM 8.9 mg/dL (8.5-10.3); CARBON DIOXIDE - CO2 36 mmol/L (21-32); CHLORIDE 101 mmol/L (101-111); CREATININE 0.6 mg/dL (0.6-1.3); DIGOXIN 1.3 ng/mL; GFR - MDRD 128 (>89); GLUCOSE 101 mg/dL (74-104); POTASSIUM 3.1 mmol/L (3.5-4.5); SODIUM 140 mmol/L (135-145)
[2023-06-01 09:26] LABS: ESTIMATED AVERAGE GLUCOSE 131 mg/dL (70-100); HEMOGLOBIN A1c% 6.2 % (4.27-6.07)
--- NOTE | 2023-06-01 20:41 | XRAY Report ---
PROCEDURE: Chest 2V INDICATIONS: EMPYEMA TECHNIQUE: 2 views of the chest were obtained. COMPARISON: 04/14/2023 FINDINGS: Surgical changes and devices: None. Lungs and pleura: Hyperinflation chronic interstitial changes present. Is blunting the left costophr enic angle. Atherosclerotic vascular calcification noted in the aortic arch. Right-sided Port-A-Cath in place Mediastinum: Mediastinal contours appear normal. Heart size is normal. Bones and chest wall: No suspicious bony lesions. Overlying soft tissues appear unremarkable. IMPRESSION: Small left pleural effusion. Hyperinflation chronic interstitial changes Reviewed by: Reynold Elizabeth MD on 06/01/2023 7:40 PM [facility] Approved by: Reynold Elizabeth MD on 06/01/2023 7:40 PM [facility] Station ID: [id number]
== END 2023-06-01 08:00 | disposition home or self-care (01) ==
LOC: LAB 07:59
PROVIDERS: ATTEND Physician Assistant Medical
DX: E11.9 Type 2 diabetes mellitus without complications (principal); I48.21 Permanent atrial fibrillation; J86.9 Pyothorax without fistula
CPT/HCPCS: 36415; 80048; 80162; 83036

== ENCOUNTER 2023-07-07 08:00 | Outpatient (CLI) | payer MEDICARE, OTHER | END 2023-07-07 23:59 | disposition home or self-care (01) | LOC: PC 08:00 | PROVIDERS: ATTEND Nurse Practitioner Gerontology | DX: Z51.5 Encounter for palliative care (principal); C76.0 Malignant neoplasm of head, face and neck; C11.9 Malignant neoplasm of nasopharynx, unspecified; N40.0 Benign prostatic hyperplasia without lower urinary tract symptoms; I73.00 Raynaud's syndrome without gangrene; I10 Essential (primary) hypertension; J45.909 Unspecified asthma, uncomplicated; Z66 Do not resuscitate; I48.21 Permanent atrial fibrillation; E11.42 Type 2 diabetes mellitus with diabetic polyneuropathy | CPT/HCPCS: 99350 ==

== ENCOUNTER 2023-07-23 17:22 | Outpatient (CLI) | payer MEDICARE, OTHER | END 2023-07-23 23:59 | disposition EMS.NT | LOC: EMS 17:22 | DX: Z04.1 Encounter for examination and observation following transport accident (principal) ==

== ENCOUNTER 2023-08-09 08:00 | Outpatient (CLI) | payer MEDICARE, OTHER | END 2023-08-09 23:59 | disposition home or self-care (01) | LOC: PC 08:00 | PROVIDERS: ATTEND Nurse Practitioner Gerontology | DX: Z51.5 Encounter for palliative care (principal); J69.0 Pneumonitis due to inhalation of food and vomit; G89.3 Neoplasm related pain (acute) (chronic); C11.3 Malignant neoplasm of anterior wall of nasopharynx; B37.0 Candidal stomatitis; K59.09 Other constipation; I48.21 Permanent atrial fibrillation; I10 Essential (primary) hypertension; E11.9 Type 2 diabetes mellitus without complications; N40.1 Benign prostatic hyperplasia with lower urinary tract symptoms; N13.8 Other obstructive and reflux uropathy; R63.0 Anorexia | CPT/HCPCS: 99350 ==

== ENCOUNTER 2023-08-16 08:00 | Outpatient (CLI) | payer MEDICARE, OTHER | END 2023-08-16 23:59 | disposition home or self-care (01) | LOC: PC 08:00 | PROVIDERS: ATTEND Nurse Practitioner Gerontology | DX: Z51.5 Encounter for palliative care (principal); C76.0 Malignant neoplasm of head, face and neck; J06.9 Acute upper respiratory infection, unspecified; L84 Corns and callosities; E11.9 Type 2 diabetes mellitus without complications; Q66.89 Other specified congenital deformities of feet; I48.91 Unspecified atrial fibrillation; Z87.891 Personal history of nicotine dependence | CPT/HCPCS: 99350 ==

== ENCOUNTER 2023-11-12 08:00 | Outpatient (CLI) | payer MEDICARE, OTHER | END 2023-11-12 23:59 | disposition home or self-care (01) | LOC: PC 08:00 | PROVIDERS: ATTEND Nurse Practitioner Gerontology | DX: Z51.5 Encounter for palliative care (principal); C76.0 Malignant neoplasm of head, face and neck; C77.8 Secondary and unspecified malignant neoplasm of lymph nodes of multiple regions; Z79.899 Other long term (current) drug therapy; Z79.891 Long term (current) use of opiate analgesic; Z95.828 Presence of other vascular implants and grafts; I10 Essential (primary) hypertension; I48.21 Permanent atrial fibrillation; K59.09 Other constipation; Z71.89 Other specified counseling; Z66 Do not resuscitate; Z92.21 Personal history of antineoplastic chemotherapy; Z92.3 Personal history of irradiation | CPT/HCPCS: 99349 ==